=== PATIENT | female | born 1950 | race Caucasian/White ===

== ENCOUNTER → 2024-03-04 11:17 | Outpatient (REF) | payer MEDICARE, OTHER, SELFPAY ==
[2024-03-04 12:34] LABS: HDL Cholesterol 106 mg/dl; LDL Cholesterol, Calculated 72 mg/dl; Total Cholesterol 193 mg/dl (50-199); Triglyceride 75 mg/dl (10-149); Very Low Density Lipoprotein 15 mg/dl (0-30)
[2024-03-04 12:49] LABS: Vitamin D, 25-OH*** 25.9 ng/mL (30-80)
== END ==
LOC: REG 11:17
PROVIDERS: ATTENDING PHYSICIAN Internal Medicine Cardiovascular Disease; FAMILY PHYSICIAN Family Medicine
DX: E55.9 Vitamin D deficiency, unspecified (principal); E78.5 Hyperlipidemia, unspecified
CPT/HCPCS: 36415; 80061; 82306

== ENCOUNTER → 2024-04-13 10:03 | Outpatient (REF) | payer MEDICARE, OTHER, SELFPAY | LOC: RCS 10:03 | PROVIDERS: ATTENDING PHYSICIAN Internal Medicine Cardiovascular Disease; FAMILY PHYSICIAN Family Medicine | DX: I48.0 Paroxysmal atrial fibrillation (principal) | CPT/HCPCS: 93017; 93350 ==

== ENCOUNTER → 2025-04-07 09:30 | Outpatient (REF) | payer MEDICARE, OTHER, SELFPAY ==
[2025-04-07 15:33] LABS: Urine Albumin Negative (Neg - Trace); Urine Bilirubin Negative (Negative); Urine Character Clear (Clear); Urine Color Yellow; Urine Glucose Negative (Negative); Urine Ketone Negative (Negative); Urine Leukocyte 1+ (Negative); Urine Nitrite Negative (Negative); Urine Occult Blood Negative (Negative); Urine Specific Gravity 1.015 (<1.030); Urine Urobilinogen Negative (Neg - 1+); Urine pH 6.5 (5.0-9.0)
[2025-04-07 15:33] LABS: % Basophils 1.3 % (0-2); % Immature Granulocytes 0.2 % (0-0.5); % Lymphocytes 31.5 % (20.5-51.1); % Monocytes 9.2 % (1.7-9.3); % Neutrophils 53.8 % (42.2-75.2); Absolute Basophils 0.1 10^3/uL (0-0.2); Absolute Eosinophils 0.2 10^3/uL (0-0.7); Absolute Lymphocytes 1.5 10^3/uL (1.2-3.4); Absolute Monocytes 0.4 10^3/uL (0.1-0.6); Absolute Neutrophils 2.6 10^3/uL (1.4-6.5); Hematocrit 41.5 % (37.0-47.0); Mean Corp Hgb Conc. 33.7 g/dL (33.0-37.0); Mean Corpuscular Volume 97.9 fL (81.0-99.0); Mean Platelet Volume 10.2 fL (7.4-10.4); Nucleated Red Blood Cells % 0 %; Platelet Count 257 10^3/uL (130-400); Red Blood Cell Count 4.24 10^6/uL (4.20-5.40); Red Cell Dist. Width 13.2 % (11.5-14.5); White Blood Cell Count 4.8 10^3/uL (4.8-10.8)
[2025-04-07 15:40] LABS: ALT (SGPT) 25 U/L (0-35); AST (SGOT) 25 U/L (14-36); Alkaline Phosphatase 62 U/L (38-126); Blood Urea Nitrogen 21 mg/dl (7-17); Calcium 9.4 mg/dl (8.4-10.2); Carbon Dioxide 29 mmol/L (22-30); Chloride 106 mmol/L (98-107); Glucose 104 mg/dl (70-99); HDL Cholesterol 90 mg/dl; LDL Cholesterol, Calculated 107 mg/dl; Potassium 4.4 mmol/L (3.5-5.1); Sodium 140 mmol/L (135-145); Total Bilirubin 0.5 mg/dl (0.2-1.3); Total Cholesterol 213 mg/dl (50-199); Total Protein 6.5 g/dl (6.3-8.2); Triglyceride 84 mg/dl (10-149); Very Low Density Lipoprotein 16 mg/dl (0-30); eGFR > 60.00
[2025-04-07 15:45] LABS: Urine Squamous Cell 0-2 /LPF (Few)
[2025-04-07 15:46] LABS: Urine Bacteria Few (Negative); Urine Red Blood Cell 0-2 /HPF (0-2)
== END ==
LOC: HWRCS 09:30
PROVIDERS: ATTENDING PHYSICIAN Internal Medicine Cardiovascular Disease; FAMILY PHYSICIAN Family Medicine; REFERRING PHYSICIAN Family Medicine
DX: I48.0 Paroxysmal atrial fibrillation (principal); M79.89 Other specified soft tissue disorders; Z87.74 Personal history of (corrected) congenital malformations of heart and circulatory system; Z00.00 Encounter for general adult medical examination without abnormal findings; G45.9 Transient cerebral ischemic attack, unspecified
CPT/HCPCS: 36415; 80053; 80061; 81003; 81015; 84443; 85025; 93306

== ENCOUNTER 2025-05-16 01:12 | Emergency (ER) | payer MEDICARE, OTHER, SELFPAY ==
[2025-05-16 01:13] VITALS: BP 170/94
[2025-05-16 01:43] VITALS: BMI 34.2
--- NOTE | 2025-05-16 02:51 | ED.GENMED ---
History of Present Illness
General
Chief Complaint: Back Pain
Source: patient
Exam Limitations: none
Time Seen by Provider: 05/16/25 02:28
Nursing documentation reviewed up to this point in time: agreed with
History of Present Illness
History of Present Illness:
Note:
CHIEF COMPLAINT(S)
Right-sided back pain.
HISTORY OF PRESENT ILLNESS
The patient is a 74-year-old female with a pmh of htn, hlp who presents to the ER today with concerns of right-sided back pain. The onset of pain occurred yesterday evening. The patient recalls being seated on the edge of a pool for about 45
minutes, turned slightly to the right while conversing with someone standing in the water. Patient reports that she was turned in an awkward position for an extended period of time. She subsequently reports that she got up too quickly and the pain
seemed to start at that time. The pain worsened later that evening and has been persistent since. The patient describes the pain as a constant dull ache with intermittent spasms that 'shoot' through her back. Moving her arm appears to trigger these
spasms, and simple actions such as blowing her nose have set off pain spasms as well. There is no radiation to the front or down the leg. The patient denies any urinary symptoms, vomiting, fevers, chills, or chest pain. She reports shortness of
breath during severe spasms. Pain does not worsen with leg movements or hip rotation. She denies radiation of the pain to the abdomen. She denies urinary or fecal incontinence, genital paresthesias, difficulty ambulating. She compares the pain to
when she had sciatica. She denies any recent falls.
PAST MEDICAL HISTORY
No prior history of kidney stones is noted.
PHYSICAL EXAM
- Reviewed nursing notes and vital signs.
General: Patient is well appearing and in no acute distress; non-toxic
Skin: Warm and dry, no rashes or lesions
Head: Normocephalic, atraumatic
Eyes: Sclera non-icteric. EOMs intact.
Cardiac: Regular rate and rhythm, no murmurs
Peripheral Vascular: No lower extremity swelling or edema
Pulm: Normal respiratory effort, no wheezes, rales, or rhonchi
Abdomen: No abdominal tenderness to palpation
Musculoskeletal: No midline spinal tenderness. Right paralumbar tenderness to palpation noted. No cva tenderness bilaterally.
Neuro: CN II-XII intact, no focal neurologic deficits. 5/5 strength in bilateral lower extremities. Normal gait.
Psychiatric: Appropriate mood and affect.
PLAN
1. Obtain X-rays to rule out compression fractures of the vertebrae.
2. Administer a Ketorolac (Toradol) injection for pain relief.
3. Apply a Lidocaine patch over the area of tenderness.
4. Prescribe a small dose of a muscle relaxant for symptomatic relief.
5. Patient driven by family, no concern for drowsiness affecting driving.
DIFFERENTIAL DIAGNOSIS
The Differential Diagnosis includes, in no particular order and is not limited to:
1. Musculoskeletal back strain
2. Compression fracture of the vertebrae
3. Herpes zoster (without rash)
4. Rib fracture
5. Intercostal muscle spasm
6. Spinal metastasis or primary malignancy
7. Thoracic aortic aneurysm
8. Costovertebral angle tenderness due to renal pathology
9. Pleural effusion
MDM/DISPOSITION
The patient is a 74-year-old female with a pmh of htn, hlp who presents to the ER today with concerns of right-sided back pain. The onset of pain occurred yesterday evening. The patient recalls being seated on the edge of a pool for about 45
minutes, turned slightly to the right while conversing with someone standing in the water. Patient reports that she was turned in an awkward position for an extended period of time and the pain persisted after that. She has been taking Tylenol and
Motrin at home with minimal relief. On exam, she is well appearing in nad she has right sided paralumbar tenderness noted no CVA tenderness. Suspect MSK etiology. Did consider kidney stone however patient's pain is significantly exacerbated by
movement and seems to improve mpre with remaining still. In addition, she has no CVA tenderness and her pain did improve with toradol, lidocaine patch, and baclofen. Her x-rays show no evidence of acute bony abnormality. Patient does have an
orthopedist she follows up with. Discussed strict return precautions. Patient stable for discharge.
Past History
Past History
ED Past Medical History: Arrthythmia (Tachybradycardia syndrome), Cancer (Tectal glioma), CVA (March 20192008), HTN, Hypercholesterolemia, Other (TIA, noncompliant, transient global amnesia 2011, vasovagal syncope, patent foramen ovale, obstructive
sleep apnea) and Other (Migraine without aura and ocular migraine)
ED Past Surgical History: Cardiac (Medtronic pacemaker 2019, Medtronic Linq placed and removed 2019), Gynecological, Orthopedic (Left foot surgery) and Other (Deep vein cauterization 2018)
Social History
Tobacco: Non-smoker
Alcohol: Occasional
Drug: None
Personal:
Living: with family
Family History
Family History: Other (Reviewed and noncontributory)
Phy Exam
Physical Exam
Physical Exam:
see hpi
Course
Orders/Labs/Results
Orders:
Orders
05/16/25 02:46
Baclofen [Lioresal] 10 mg PO NOW STA
Ketorolac [Toradol] 15 mg IM NOW STA
Lidocaine [Lidocaine 4% Patch] 1 patch TOPICAL DAILY ONE
Apply Lidocaine patch(s) to:: right low back
05/16/25 02:50
CR Lumbar Spine 2 Or 3 Views Urgent
Comment:
Reason For Exam: back pain
CR Thoracic Spine 3 Views Urgent
Comment:
Reason For Exam: back pain
05/16/25 05:32
Vital Signs- Treatment ONCE
Frequency: Once
Vital Signs
Initial and Last Documented VS:
Initial Vital Signs
Temp Pulse Resp BP Pulse Ox
98.2 F 72 24 170/94 96
05/16/25 01:13 05/16/25 01:13 05/16/25 01:13 05/16/25 01:13 05/16/25 01:13
Last Documented Vital Signs
Temp Pulse Resp BP Pulse Ox
97.6 F 81 18 146/82 98
05/16/25 06:27 05/16/25 06:27 05/16/25 06:27 05/16/25 06:27 05/16/25 06:27
*Pulse Oximetry
SaO2: 95
Oxygen Mode of Delivery: Room air
Patient hypoxic: no
*Critical Care Note
Total Time (30-74mins, 75-104mins- exclusive of procedures): Not Applicable
ED Attending Note
-
Portions of this chart may have been created with voice recognition software.� Occasional wrong word or��sound alike� substitutions may have occurred due to the inherent limitations of voice recognition software.
Discharge Plan
Departure
Patient Disposition: Home (Routine Discharge)
Date of Disposition: 05/16/25
Time of Disposition: 05:37
Patient with high blood pressure during this ER visit?: Yes
Condition: Good
Discharge Problem:
Back sprain
Instructions: Low Back Pain (DC), BLOOD PRESSURE
Prescriptions:
New
lidocaine 5 % adhesive patch,medicated
1 patch topical DAILY Qty: 30 0RF
baclofen 10 mg tablet
10 mg PO HS Qty: 8 0RF
No Action
Excedrin Migraine 250-250-65 mg Tablet
PRN PRN (Reason: migraine)
aspirin 81 mg Tablet,Chewable
81 mg PO DAILY Qty: 30 0RF
metoprolol succinate 25 mg Tablet Extended Release 24 Hr
25 mg PO DAILY Qty: 30 0RF
pravastatin 10 mg tablet
10 mg PO HS Qty: 30 2RF
Referrals:
Mich White DO [Family Provider, Family Practice]
Activity Restrictions/Additional Instructions:
Please continue to alternate Tylenol and Advil for your pain at home. Lidocaine patches have been sent to your pharmacy. You apply 1 patch to affected area once daily. Please remove after 12 hours. Please follow-up with your orthopedist.
PLEASE RETURN EMERGENCY DEPARTMENT SHOULD YOU DEVELOP CHEST PAIN, NAUSEA OR VOMITING, ABDOMINAL PAIN, URINARY OR FECAL INCONTINENCE, NUMBNESS OR TINGLING IN THE GENITAL REGION, INABILITY AMBULATE, OR ANY OTHER SIGNS OR SYMPTOMS WORRISOME TO YOU.
Interventions
Interventions:
*Risk Screen - Suicide Last Done: 05/16/25 01:13
*General Assessment Last Done: 05/16/25 01:46
*Neglect/Abuse Screening Last Done: 05/16/25 01:13
*ED- Fall Risk Assessment Last Done: 05/16/25 01:46
*ED COVID-19 Vaccine History Last Done: 05/16/25 01:46
*Nursing Disposition Last Done: 05/16/25 06:27
ED-Musculoskeletal Assessment Last Done: 05/16/25 01:52
Discharge Date and Time
Print Language: COLOMBIAN
[2025-05-16] MEDS: LIORESAL 10 MG PO (03:24)
[2025-05-16] MEDS: TORADOL 15 MG IM (03:25)
[2025-05-16] MEDS: LIDOCAINE 4% PATCH 1 PATCH TOPICAL (03:33)
[2025-05-16 05:27] VITALS: BP 124/76
[2025-05-16 06:00] VITALS: BP 148/76
[2025-05-16 06:27] VITALS: BP 146/82
== END 2025-05-16 06:27 | disposition home or self-care (01) ==
LOC: EMR 01:12
PROVIDERS: EMERGENCY PHYSICIAN Student in an Organized Health Care Education/Training Program; FAMILY PHYSICIAN Family Medicine
DX: S33.5XXA Sprain of ligaments of lumbar spine, initial encounter (principal); X58.XXXA Exposure to other specified factors, initial encounter; I10 Essential (primary) hypertension; E78.00 Pure hypercholesterolemia, unspecified; G47.33 Obstructive sleep apnea (adult) (pediatric); Z86.73 Personal history of transient ischemic attack (TIA), and cerebral infarction without residual deficits; Z95.0 Presence of cardiac pacemaker
CPT/HCPCS: 99283; 72072; 72100

== ENCOUNTER 2025-11-07 14:59 | Emergency (ER) | payer MEDICARE, OTHER, SELFPAY ==
[2025-11-07 15:38] VITALS: BP 121/84
--- NOTE | 2025-11-07 17:19 | ED.GENMED ---
History of Present Illness
General
Chief Complaint: Musculo-Skeletal Complaint
Source: patient
Exam Limitations: none
Time Seen by Provider: 11/07/25 17:09
Nursing documentation reviewed up to this point in time: agreed with
History of Present Illness
History of Present Illness:
Patient is 75-year-old female reports several weeks ago she dropped something on her left great toe since then she complains of whitish coloring to her toenail and noticed some pus underneath her nail. She also planes of mild redness to the toe.
She has an appointment with podiatry November 13. She denies any fevers.
Past History
Past History
ED Past Medical History: Arrthythmia (Tachybradycardia syndrome), Cancer (Tectal glioma), CVA (March 20192008), HTN, Hypercholesterolemia, Other (TIA, noncompliant, transient global amnesia 2011, vasovagal syncope, patent foramen ovale, obstructive
sleep apnea) and Other (Migraine without aura and ocular migraine)
ED Past Surgical History: Cardiac (Medtronic pacemaker 2019, Medtronic Linq placed and removed 2019), Gynecological, Orthopedic (Left foot surgery) and Other (Deep vein cauterization 2018)
Social History
Tobacco: Non-smoker
Alcohol: Occasional
Drug: None
Personal:
Living: with family
Family History
Family History: Other (Reviewed and noncontributory)
Phy Exam
General Physical Exam
General Presentation: no apparent distress
General age: appears stated age
General Skin: warm and dry
General Habitus: normal
General Mental: alert
Musculoskeletal Exam
Musculoskeletal Exam: other (rle with strong pulses ; right great toe with very minimal erythema around toe nail/distal phalanx; no visible pus or drainage no swelling to toe )
Skin Exam
Skin Exam: normal color and warm/dry
Psychiatric Exam
Psychiatric Exam: normal mood/affect
Course
Orders/Labs/Results
Orders:
Orders
11/07/25 15:44
CR Toe(s) Min 2 Vw Right Urgent
Comment:
Reason For Exam: redness, swelling, pain
Indicate Which Toe:: Great
11/07/25 17:24
Clindamycin HCl [Cleocin] 300 mg PO NOW STA
Vital Signs
Initial and Last Documented VS:
Initial Vital Signs
Temp Pulse Resp BP Pulse Ox
98.6 F 84 16 121/84 97
11/07/25 15:38 11/07/25 15:38 11/07/25 15:38 11/07/25 15:38 11/07/25 15:38
Last Documented Vital Signs
Temp Pulse Resp BP Pulse Ox
98.6 F 84 16 121/84 97
11/07/25 15:38 11/07/25 15:38 11/07/25 15:38 11/07/25 15:38 11/07/25 17:22
MDM/Problems Addressed
Differential Diagnosis Includes:
Not limited to fracture, cellulitis
MDM/Problems Addressed:
Will treat for mild cellulitis of the great toe however very minimal redness. Patient is allergic to penicillin and cephalosporins will DC with clindamycin. She has tolerated this in the past .
she has an upcoming appointment with podiatry November 13.
She is afebrile no acute distress x-rays are negative return precautions
*Radiology
Radiology exam reviewed: radiology read reviewed
*Pulse Oximetry
SaO2: 97
Oxygen Mode of Delivery: Room air
Patient hypoxic: no
*Critical Care Note
Total Time (30-74mins, 75-104mins- exclusive of procedures): Not Applicable
ED Attending Note
-
Portions of this chart may have been created with voice recognition software.� Occasional wrong word or��sound alike� substitutions may have occurred due to the inherent limitations of voice recognition software.
Discharge Plan
Departure
Patient Disposition: Home (Routine Discharge)
Date of Disposition: 11/07/25
Time of Disposition: 17:28
Patient with high blood pressure during this ER visit?: No
Covid-19: Not Applicable
Discharge Problem:
Cellulitis
Instructions: Cellulitis (skin infection) in adults (DC)
Prescriptions:
New
clindamycin HCl [Cleocin HCl] 300 mg capsule
300 mg PO Q6H Qty: 28 0RF
No Action
Excedrin Migraine 250-250-65 mg Tablet
PRN PRN (Reason: migraine)
aspirin 81 mg Tablet,Chewable
81 mg PO DAILY Qty: 30 0RF
metoprolol succinate 25 mg Tablet Extended Release 24 Hr
25 mg PO DAILY Qty: 30 0RF
pravastatin 10 mg tablet
10 mg PO HS Qty: 30 2RF
lidocaine 5 % adhesive patch,medicated
1 patch topical DAILY Qty: 30 0RF
baclofen 10 mg tablet
10 mg PO HS Qty: 8 0RF
Referrals:
Mich White DO [Family Provider, Family Practice]
Activity Restrictions/Additional Instructions:
As discussed a prescription was sent to your pharmacy take as directed. Clindamycin 300 mg every 6 hours for the next 7 days. You were given the first dose here in the ER. Follow-up with your director internal communications as scheduled. Return if any worsening of
symptoms of increased pain swelling redness drainage fever chills.
Interventions
Interventions:
*General Assessment Last Done: 11/07/25 15:38
*Neglect/Abuse Screening Last Done: 11/07/25 15:38
*ED COVID-19 Vaccine History Last Done: 11/07/25 15:38
*ED Influenza Vaccine History Last Done: 11/07/25 15:38
*Risk Screen - Suicide (C-SSRS) Last Done: 11/07/25 15:38
Discharge Date and Time
Print Language: MALTESE
[2025-11-07] MEDS: CLEOCIN 300 MG PO (17:39)
== END 2025-11-07 17:47 | disposition home or self-care (01) ==
LOC: EMR 14:59
PROVIDERS: EMERGENCY PHYSICIAN Emergency Medicine; FAMILY PHYSICIAN Family Medicine
DX: L03.031 Cellulitis of right toe (principal); E78.00 Pure hypercholesterolemia, unspecified; I10 Essential (primary) hypertension; Z86.73 Personal history of transient ischemic attack (TIA), and cerebral infarction without residual deficits; Z88.0 Allergy status to penicillin; Z95.0 Presence of cardiac pacemaker
CPT/HCPCS: 99283; 73660